=== PATIENT | female | born 1990 | race Caucasian/White ===

== ENCOUNTER 2018-05-30 16:48 | Emergency (ER) | payer SELFPAY ==
[2018-05-30] MEDS ORDERED: hydrOXYzine HCl 25 MG TAB ONE (17:51)
[2018-05-30] MEDS ORDERED: NA CHLORIDE 0.9% 1,000 ML ONE ×2 (17:51→19:39)
[2018-05-30] MEDS ORDERED: ONDANSETRON 4 MG/2 ML VIAL ONE ×2 (17:51→20:26)
[2018-05-30 18:09] LABS: Urine Blood 1+ (NEG); Urine Glucose TRACE (NEG); Urine Protein 1+ (NEG); Urine Specific Gravity 1.025 (1.005-1.030); Urine pH 5.5 (5.0-7.0)
[2018-05-30 18:10] LABS: Absolute Lymphocytes (CBC) 1.3 K/uL (0.7-4.9); Absolute Monocytes 0.7 K/uL (0.1-1.3); Absolute Neutrophil 5.3 K/uL (1.8-8.0); Basophils % 0.6 % (0-1.3); Eosinophils % 4.7 % (0-4.4); Hematocrit 42.2 % (36.0-45.0); Lymphocytes % 17.1 % (15.3-44.8); MCH 31.4 pg (27.0-35.0); MCV 91.1 fL (80-100); MPV 9.8 fL (7.6-11.3); Monocytes % 9.2 % (3.3-12.3); RBC Red Blood Cell Count 4.63 M/uL (3.86-4.86)
[2018-05-30] MEDS ORDERED: MORPHINE 4 MG/ML SYR ONE ×2 (18:25→20:26)
[2018-05-30 18:32] LABS: Urine Bacteria <20 /HPF (<20); Urine Culture Reflex Order NOT NEEDED; Urine RBC <5 /HPF (NONE SEEN)
[2018-05-30 18:33] LABS: Urine Amorphous Sediment TRACE /HPF (NONE SEEN); Urine Mucus MOD /HPF (NONE SEEN)
[2018-05-30 18:46] LABS: ALT/SGPT 274 U/L (12-78); AST/SGOT 193 U/L (15-37); Albumin 3.2 g/dL (3.4-5.0); Alkaline Phosphatase 373 U/L (45-117); BUN Blood Urea Nitrogen 6 mg/dL (7-18); Bicarbonate 24 mmol/L (21-32); Bilirubin Direct 6.2 mg/dL (0-0.2); Glucose Level 118 mg/dL (74-106); Lipase 11723 U/L (73-393); Potassium 3.1 mmol/L (3.5-5.1); Protein, Total 7.4 g/dL (6.4-8.2); Sodium Level 137 mmol/L (136-145); Troponin (Emerg Dept Use Only) < 0.02 ng/mL (0.0-0.045)
[2018-05-30 18:49] LABS: Bilirubin Total 7.1 mg/dL (0.2-1.0)
--- NOTE | 2018-05-30 18:55 | RAD REPORT ---
EXAM DESCRIPTION: CTAbdomen Pelvis W Contrast - 05/30/2018 6:43 pm CLINICAL HISTORY: Abdominal pain. IV ONLY abdominal pain COMPARISON: No comparisons TECHNIQUE: Biphasic CT imaging of the abdomen and pelvis was performed with 100 ml non-ionic IV cont rast. All CT scans are performed using dose optimization technique as appropriate and may include automated exposure control or mA/KV adjustment according to patient size. FINDINGS: The lung bases are clear. The liver demonstrates mild moderate intrahepatic biliary dilatation. No aggressive liver lesion. The pancreatic duct is mildly dilated. Common bile duct is dilated at 13 mm with internal calcified and noncalcified material present likely representing choledocholithiasis. The spleen, adrenal glands kid neys are within normal limits. No bowel obstruction, free air, free fluid or abscess. The appendix is normal. No evidence of signi ficant lymphadenopathy. No suspicious bony findings. IMPRESSION: Choledocholithiasis is suspected with [id number] intrahepatic biliary tree dilatat ion and pancreatic duct dilatation. Followup ERCP is recommended.
--- NOTE | 2018-05-30 19:12 | RAD REPORT ---
EXAM DESCRIPTION: US - Abdomen Exam Limited - 05/30/2018 7:05 pm CLINICAL HISTORY: EPIGASTRIC PAIN COMPARISON: Abdomen Pelvis W Contrast dated 05/30/2018 FINDINGS: The gallbladder demonstrates sludge and shadowing gallstones. No pericholecystic fluid or gallbladder wall thickening. The common bile duct is dilated measuring 11 mm with a stone present in the common duct.. The liver demonstrates mild intrahepatic biliary dilatation. IMPRESSION: Cholelithiasis and choledocholithiasis is noted. ERCP followup assessment would be maegan mmended.
--- NOTE | 2018-05-30 19:39 | ER ---
Nurse's Notes [facility] Name: Vanessa Herrera Age: 27 yrs Sex: Female : 1990 Arrival Date: 05/30/2018 Time: 16:50 Bed 18 Private MD: Diagnosis: Acute pancreatitis;Cholelithiasis Presentation: 05/30 17:06 Presenting complaint: Patient states: 3 weeks ago she was treated in [place] for a UTI, aj1 and her skin was itching. She has been vomiting since Saturday, having mid back pain, abdominal pain, and dark urine. Patient states she is itching everywhere, and has been bruising easily. Sclera is jaundiced. Transition of care: patient was not received from another setting of care. Onset of symptoms was April 2018. Risk Assessment: Do you want to hurt yourself or someone else? Patient reports no desire to harm self or others. Initial Sepsis Screen: Does the patient meet any 2 criteria? No. Patient's initial sepsis screen is negative. Does the patient have a suspected source of infection? Yes: Acute abdominal pain. Care prior to arrival: None. 17:06 Method Of Arrival: Ambulatory aj1 17:06 Acuity: VICKIE 3 aj1 Triage Assessment: 17:13 General: Appears in no apparent distress. uncomfortable, Behavior is calm, cooperative, aj1 appropriate for age. Pain: Complains of pain in back and abdomen Pain currently is 9 out of 10 on a pain scale. Neuro: Level of Consciousness is awake, alert, obeys commands. Cardiovascular: Patient's skin is warm and dry. Respiratory: Airway is patent Respiratory effort is even, unlabored, Respiratory pattern is regular, symmetrical. GI: Reports upper abdominal pain. 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 - Social history:: Smoking status: Patient uses tobacco products, smokes one-half pack cigarettes per day, Patient uses alcohol, but reports only rare drinking. - Ebola Screening: : Patient denies travel to an Ebola-affected area in the 21 days before illness onset. Screenin:15 Abuse screen: Denies threats or abuse. Nutritional screening: No deficits noted. em Tuberculosis screening: No symptoms or risk factors identified. Fall Risk None identified. Assessment: 17:45 General: Appears in no apparent distress. uncomfortable, Behavior is calm, cooperative, em Denies fever. Pain: Complains of pain in abdomen Pain radiates to back Pain currently is 8 out of 10 on a pain scale. Neuro: Level of Consciousness is awake, alert, obeys commands, Oriented to person, place, time, situation. Neuro: Reports "trouble concentrating" . Denies dizziness, headache. Cardiovascular: Denies chest pain, Capillary refill < 3 seconds Patient's skin is warm and dry. Respiratory: Airway is patent Respiratory effort is even, unlabored, Respiratory pattern is regular, symmetrical. GI: Abdomen is round Abd is soft X 4 quads Abdomen is tender to palpation X 4 quads. Reports nausea, vomiting. : Urine is tea colored Denies burning with urination. EENT: Sclera/Cornea jaundiced. Reports. Derm: Skin is intact, Skin is normal. Musculoskeletal: Range of motion: intact in all extremities. 17:50 Reassessment: I agree with previous assessment. hb 18:25 Reassessment: Patient appears in no apparent distress at this time. pt request em something for pain, provider notified, new medication orders received. 18:33 Reassessment: Patient appears in no apparent distress at this time. Patient and/or em family updated on plan of care and expected duration. Pain level reassessed. Patient is alert, oriented x 3, equal unlabored respirations, skin warm/dry/pink. rates pain 5/10, wheeled to CT via wheelchair Patient states feeling better. 19:15 Reassessment: Patient appears in no apparent distress at this time. Patient and/or cc3 family updated on plan of care and expected duration. Pain level reassessed. Patient is alert, oriented x 3, equal unlabored respirations, skin warm/dry/pink. Received this female patient from morning shift [facility] as a case of abdominal and back pain. With IV cannula gauge 20 at the right ACV saline locked. Waiting for CT scan abdomen and ultrasound abdomen result. 19:40 Reassessment: Patient for transfer to [facility], accepting cc3 physician is Dr. Arias. Transfer process ongoing. 20:25 Reassessment: Patient appears in no apparent distress at this time. Patient and/or cc3 family updated on plan of care and expected duration. Pain level reassessed. Patient is alert, oriented x 3, equal unlabored respirations, skin warm/dry/pink. Report called to RN Anita Burns and was told that patient will be transferred to surgery floor 15th assumptioner room 1551; transfer form signed by the patient herself and given to secretary board of commissioners for transfer processing and EMS contact. 21:45 Reassessment: Patient appears in no apparent distress at this time. Patient and/or cc3 family updated on plan of care and expected duration. Pain level reassessed. Patient is alert, oriented x 3, equal unlabored respirations, skin warm/dry/pink. EMS came and handed over the report. Patient left ER and taken by EMS staff for transfer to [facility] by stretcher vitally stable. Vital Signs: 17:13 BP 144 / 101; Pulse 80; Resp 18; Temp 98.3(TE); Pulse Ox 99% on R/A; Weight 79.38 kg aj1 (R); Height 5 ft. 5 in. (165.10 cm) (R); Pain 9/10; 18:16 BP 114 / 90; Pulse 61; Resp 18; Pulse Ox 100% on R/A; Pain 8/10; em 19:15 BP 132 / 72; Pulse 66; Resp 18 S; Temp 98.1(O); Pulse Ox 97% on R/A; Pain 8/10; cc3 20:05 BP 150 / 84; Pulse 68; Resp 17 S; Pulse Ox 100% on R/A; cc3 21:16 BP 147 / 87; Pulse 61; Resp 18 S; Pulse Ox 99% on R/A; cc3 17:13 Body Mass Index 29.12 (79.38 kg, 165.10 cm) [facility] ED Course: 16:50 Patient arrived in ED. as 17:12 Triage completed. aj1 17:13 Arm band placed on Patient placed in an exam room. aj1 17:16 Edu Mayberry LVN is Primary Nurse. em 17:21 Jose Gutierrez PA is PHCP. [facility] 17:21 Baljit Jones MD is Attending Physician. jmm 17:45 Radiology exam delayed due to lab results not completed at this time. (BUN/Creatinine) ms test not completed at this time. 18:15 Patient has correct armband on for positive identification. Placed in gown. Bed in low em position. Call light in reach. Adult w/ patient. Pulse ox on. NIBP on. 18:15 Initial lab(s) drawn, by me, sent to lab. Urine collected: clean catch specimen, tea em colored. Inserted saline lock: 20 gauge in right antecubital area, using aseptic technique. Blood collected. 18:37 Radiology exam delayed due to pt in CT at this time. cy 18:41 Patient moved to [place] via wheelchair. nj 18:43 CT completed. Patient tolerated procedure well. Patient moved back from [place]. nj 18:44 CT Abd/Pelvis - W/Contrast In Process Unspecified. EDMS 19:04 Ultrasound completed. Patient tolerated well. cy 19:05 US Abdomen Limited In Process Unspecified. EDMS 19:12 Initiated transfer with [facility]. Spoke with Gladis Jackson. cc 19:28 Notified CREDENTIALING ASSISTANT/SILVANA ortiz with us prelim. cy 19:30 IV discontinued, intact, bleeding controlled, No redness/swelling at site. Pressure cc3 dressing applied. 19:40 No provider procedures requiring assistance completed. Inserted saline lock: 20 gauge cc3 in left antecubital area, using aseptic technique. 19:44 Received administrative approval for transfer to [facility] from Gladis Jackson. cc Accepting physician DR. Adalberto Chris. 21:45 Patient transferred, IV remains in place. cc3 Administered Medications: 18:06 Drug: Zofran 4 mg Route: IVP; Site: right antecubital; hb 18:35 Follow up: Response: No adverse reaction; Nausea is decreased em 18:09 Drug: NS 0.9% 1000 ml Route: IV; Rate: 1 bolus; Site: right antecubital; em 18:34 Follow up: IV Status: Completed infusion; IV Intake: 1000ml em 18:09 Drug: hydrOXYzine 50 mg Route: PO; em 19:02 Follow up: Response: No adverse reaction em 18:36 Drug: morphine 2 mg Route: IVP; Site: right antecubital; kr2 19:02 Follow up: Response: No adverse reaction; Pain is decreased em 19:40 Drug: NS 0.9% 1000 ml Route: IV; Rate: 1 bolus; Site: left antecubital; cc3 21:00 Follow up: Response: No adverse reaction; IV Status: Completed infusion; IV Intake: cc3 1000ml 20:25 Drug: Zofran 4 mg Route: IVP; Site: left antecubital; cc3 21:00 Follow up: Response: No adverse reaction; Nausea is decreased cc3 20:28 Drug: Pepcid 20 mg Route: IVP; Site: left antecubital; cc3 21:00 Follow up: Response: No adverse reaction; Pain is decreased cc3 20:30 Drug: morphine 4 mg Route: IVP; Site: left antecubital; cc3 21:00 Follow up: Response: No adverse reaction; Pain is decreased cc3 Intake: 18:34 IV: 1000ml; Total: 1000ml. em 21:00 IV: 1000ml; Total: 2000ml. cc3 Outcome: 19:38 ER care complete, transfer ordered by MD. alvarado 21:45 Transferred by ground EMS to [facility], Transfer form completed. cc3 Note: surgery floor [address] [place] Room 1551 21:45 Condition: stable 21:45 Instructed on the need for transfer. 21:47 Patient left the ED. cc3 Signatures: Dispatcher [employer] Clau Mullins RN RN [email or web address] Jose Gutierrez PA PA Edu Good, DRY WALL PLASTERER DRY WALL PLASTERER Gina Moreno [place] cc Yun Montoya RN RN hb Jordan, Nathan nj Reaves, Karey, RN RN kr2 Yuridia Eli Charlene cc3 Corrections: (The following items were deleted from the chart) 21:13 19:40 Reassessment: Patient for transfer to [facility]. Transfer cc3 process ongoing. cc3
--- NOTE | 2018-05-30 19:39 | EDPHYS ---
Physician Documentation [facility] Name: Vanessa Herrera Age: 27 yrs Sex: Female : 1990 Arrival Date: 05/30/2018 Time: 16:50 Bed 18 Private MD: ED Physician Baljit Jones HPI: 05/30 17:39 This 27 yrs old Female presents to ER via Ambulatory with complaints of jmm Vomiting, Abdominal Pain, Back Pain. 17:39 The patient presents to the emergency department with nausea, vomiting, abdominal pain. jmm Onset: The symptoms/episode began/occurred gradually, 3 week(s) ago. Possible causes: unknown. The symptoms are aggravated by nothing. The symptoms are alleviated by nothing. Associated signs and symptoms: Pertinent positives: abdominal pain. This is a 27 year old female with no chronic medical conditions that presents to the ED with 3 weeks of abdominal pain, vomiting, back pain. Patient was diagnosed with UTI 3 weeks prior and states symptoms have continued. Denies fever . 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 - Social history:: Smoking status: Patient uses tobacco products, smokes one-half pack cigarettes per day, Patient uses alcohol, but reports only rare drinking. - Ebola Screening: : Patient denies travel to an Ebola-affected area in the 21 days before illness onset. ROS: 17:39 Constitutional: Negative for fever, chills, and weight loss, Cardiovascular: Negative jmm for chest pain, palpitations, and edema, Respiratory: Negative for shortness of breath, cough, wheezing, and pleuritic chest pain. 17:39 MS/Extremity: Negative for injury and deformity, Skin: Negative for injury, rash, and discoloration, Neuro: Negative for headache, weakness, numbness, tingling, and seizure. 17:39 Abdomen/GI: Positive for abdominal pain, nausea and vomiting. 17:39 Back: Positive for radiated pain. 17:39 All other systems are negative. Exam: 17:39 Head/Face: atraumatic. jmm 17:39 Constitutional: The patient appears in no acute distress, alert, awake. 17:39 Eyes: EOMI, no conjunctival erythema appreciated ENT: Moist Mucus Membranes Neck: jmm Trachea midline, Supple Chest/axilla: Normal chest wall appearance and motion. Cardiovascular: Regular rate and rhythm. No edema appreciated 17:39 Abdomen/GI: Inspection: abdomen appears normal, Bowel sounds: normal, Palpation: soft, jmm moderate abdominal tenderness, in all quadrants. 17:39 Back: pain, is absent, ROM is normal. 17:39 Musculoskeletal/extremity: ROM: intact in all extremities. 17:39 Skin: Appearance: Color: normal in color. 17:39 Neuro: Orientation: is normal, Mentation: is normal, Memory: is normal. 17:39 Psych: Behavior/mood is pleasant, cooperative. Vital Signs: 17:13 BP 144 / 101; Pulse 80; Resp 18; Temp 98.3(TE); Pulse Ox 99% on R/A; Weight 79.38 kg aj1 (R); Height 5 ft. 5 in. (165.10 cm) (R); Pain 9/10; 18:16 BP 114 / 90; Pulse 61; Resp 18; Pulse Ox 100% on R/A; Pain 8/10; em 19:15 BP 132 / 72; Pulse 66; Resp 18 S; Temp 98.1(O); Pulse Ox 97% on R/A; Pain 8/10; cc3 20:05 BP 150 / 84; Pulse 68; Resp 17 S; Pulse Ox 100% on R/A; cc3 21:16 BP 147 / 87; Pulse 61; Resp 18 S; Pulse Ox 99% on R/A; cc3 17:13 Body Mass Index 29.12 (79.38 kg, 165.10 cm) aj1 MDM: 17:39 Patient medically screened. [facility] 19:36 Data reviewed: vital signs, nurses notes. Counseling: I had a detailed discussion with christiano the patient and/or guardian regarding: the historical points, exam findings, and any diagnostic results supporting the discharge/admit diagnosis, lab results, radiology results, the need to transfer to another facility. Physician consultation:. ED course: I discussed the patient with GI and internal medicine at [facility] whom accepted transfer. 05/30 17:40 Order name: Basic Metabolic Panel; Complete Time: 18:51 [facility] 05/30 17:40 Order name: CBC with Diff; Complete Time: 18:24 [facility] 05/30 17:40 Order name: Creatinine for Radiology; Complete Time: 18:24 [facility] 05/30 17:40 Order name: Hepatic Function; Complete Time: 18:51 [facility] 05/30 17:40 Order name: Lipase; Complete Time: 18:51 [facility] 05/30 17:40 Order name: Troponin (emerg Dept Use Only); Complete Time: 18:51 [facility] 05/30 17:41 Order name: US Abdomen Limited; Complete Time: 19:16 [facility] 05/30 17:41 Order name: CT Abd/Pelvis - W/Contrast; Complete Time: 18:59 [facility] 05/30 18:00 Order name: Urine Microscopic Only; Complete Time: 18:39 [facility] 05/30 18:07 Order name: Urine --Ancillary (enter results); Complete Time: 18:16 05/30 18:07 Order name: Urine Dipstick--Ancillary (enter results); Complete Time: 18:16 05/30 17:40 Order name: IV Saline Lock; Complete Time: 18:10 [facility] 05/30 17:40 Order name: Labs collected and sent; Complete Time: 18:10 [facility] Administered Medications: 18:06 Drug: Zofran 4 mg Route: IVP; Site: right antecubital; hb 18:35 Follow up: Response: No adverse reaction; Nausea is decreased em 18:09 Drug: NS 0.9% 1000 ml Route: IV; Rate: 1 bolus; Site: right antecubital; em 18:34 Follow up: IV Status: Completed infusion; IV Intake: 1000ml em 18:09 Drug: hydrOXYzine 50 mg Route: PO; em 19:02 Follow up: Response: No adverse reaction em 18:36 Drug: morphine 2 mg Route: IVP; Site: right antecubital; kr2 19:02 Follow up: Response: No adverse reaction; Pain is decreased em 19:40 Drug: NS 0.9% 1000 ml Route: IV; Rate: 1 bolus; Site: left antecubital; cc3 21:00 Follow up: Response: No adverse reaction; IV Status: Completed infusion; IV Intake: cc3 1000ml 20:25 Drug: Zofran 4 mg Route: IVP; Site: left antecubital; cc3 21:00 Follow up: Response: No adverse reaction; Nausea is decreased cc3 20:28 Drug: Pepcid 20 mg Route: IVP; Site: left antecubital; cc3 21:00 Follow up: Response: No adverse reaction; Pain is decreased cc3 20:30 Drug: morphine 4 mg Route: IVP; Site: left antecubital; cc3 21:00 Follow up: Response: No adverse reaction; Pain is decreased cc3 Disposition: 05/31 10:25 Co-signature as Attending Physician, Baljit Jones MD I agree with the assessment and rn plan of care. 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 Attestation: The patient's history, exam findings, diagnostics, and a summary of any interventions or procedures was reviewed in detail with Jose PINA. Disposition: 05/30/18 19:38 Transfer ordered to [facility]. Diagnosis are Acute pancreatitis, Cholelithiasis. - Reason for transfer: Higher level of care. - Accepting physician is [place]. - Condition is Stable. - Problem is new. - Symptoms have improved. Signatures: Dispatcher [employer] EDClau Mccarty RN RN aj1 Jose Gutierrez PA PA jmm Munoz, Edu, DIRECTOR BLOOD BANK DIRECTOR BLOOD BANK Baljit Humphries MD MD rn Baxter, Heather, RN RN hb Reaves, Karey, RN RN tye2 Tabatha Walker cc3 Corrections: (The following items were deleted from the chart) 05/30 21:47 19:38 05/30/2018 19:38 Transfer ordered to [facility]. Diagnosis is cc3 Acute pancreatitis; Cholelithiasis. Reason for transfer: Higher level of care. Accepting physician is [place]. Condition is Stable. Problem is new. Symptoms have improved. christiano
[2018-05-30] MEDS ORDERED: FAMOTIDINE 20 MG/2 ML VIAL IV ONE (20:27)
== END 2018-05-30 21:47 | disposition short-term general hospital (02) ==
LOC: ER 16:48
DX: K85.90 Acute pancreatitis without necrosis or infection, unspecified (principal); K80.20 Calculus of gallbladder without cholecystitis without obstruction; F17.210 Nicotine dependence, cigarettes, uncomplicated
CPT/HCPCS: 36415; 74177; 76705; 80048; 80076; 81003; 81015; 81025; 83690; 84484; 85025; 99285; J2405; J7030; Q9967